=== PATIENT | female | born 2000 | race Caucasian/White ===

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

== ENCOUNTER 2020-09-03 08:06 | Inpatient (IN) ==
[2020-09-03] MEDS ORDERED: OXYTOCIN 30 UNITS/500 ML BAG IV PRN ×2 (09:01→20:57)
[2020-09-03] MEDS: miSOPROStoL 50 MCG TAB PO SCH ×3 (09:28→18:24)
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
[2020-09-03 09:32] LABS: Hematocrit (blood only) 36.4 % (37-47); Hemoglobin 12.3 g/dL (12.0-16.0); Mean Corpuscular Hemoglobin 29.2 pg (25-34); Mean Corpuscular Hgb Conc 33.8 g/dL (32-36); Mean Corpuscular Volume 86.5 fL (80-100); Mean Platelet Volume 9.1 fL (7.4-10.4); Platelet Count 312 K/uL (130-400); RDW Coefficient of Variation 15.1 % (11.5-14.5); RDW Standard Deviation 47.4 fL (36.4-46.3); Red Blood Count 4.21 M/uL (4.2-5.4)
[2020-09-03 09:55] LABS: Amphetamines+Metham, Urine Neg (Neg); Barbiturates, Urine Neg (Neg); Benzodiazepine, Urine Neg (Neg); Cocaine, Urine Neg (Neg); MDMA (Ecstacy), Urine Neg (Neg); Methadone, Urine Neg (Neg); Opiate, Urine Neg (Neg); Phencyclidine, Urine Neg (Neg)
[2020-09-03 09:59] LABS: Alanine Aminotransferase 13 U/L (12-78); Albumin Level 2.6 gm/dl (3.4-5.0); Aspartate Aminotransferase 11 U/L (15-37); BUN Creatinine Ratio 14.3 (10-20); Blood Urea Nitrogen 8 mg/dl (7-18); Calcium 8.4 mg/dl (8.5-10.1); Carbon Dioxide 21 mmol/L (21-32); Chloride 111 mmol/L (98-107); Creatinine Clr Calc Pharmacy 228.5 ml/min; Est GFR (African American) > 150.0; Est GFR (Non-African American) 135.8; Glucose 84 mg/dl (70-99); Potassium 3.8 mmol/L (3.5-5.1); Sodium 137 mmol/L (136-145)
[2020-09-03 10:01] LABS: Albumin Globulin Ratio 0.7 (0.9-2); Alkaline Phosphatase 153 U/L (45-117); Bilirubin,Total 0.2 mg/dl (0.2-1); Globulin 3.8 gm/dl (2.5-4.0); Total Protein 6.4 gm/dl (6.4-8.2)
--- NOTE | 2020-09-03 17:45 | Obstetrical Progress Note ---
Date of Service September 03, 2020 Assessment & Plan Admission and Anticipated Discharge Date Admission Date: September 03, 2020 Subjective Patient is reevaluated. She has been feeling pain every 2 minutes lasting about 10 to 20 seconds since she broke her water at around 3:30 PM this afternoon. Pain is 5 out of 10 and she is pain-free in between. She had a big gush and it has been clear. She states pain is not bad and does not want any pain medication. Vaginal exam, grossly leaking clear fluid. Cervix is very high posterior 1 cm and head is ballotable. heart rate category 1, toco does not register any contractions. Plan to adjust to toco to monitor contractions for further plan. Continue to monitor closely. Results & Data ([facility]) Vital Signs (Past 12 Hours) Vital Signs Temp Pulse Resp BP 09/03/20 14:22 94 H 132/87 09/03/20 14:08 90 131/81 09/03/20 13:53 94 H 141/77 H 09/03/20 13:38 93 H 140/85 09/03/20 13:23 93 H 133/76 09/03/20 13:04 36.8 C 18 09/03/20 10:27 73 138/79 09/03/20 10:12 80 130/80 09/03/20 09:57 74 131/82 09/03/20 09:43 86 129/83 09/03/20 09:30 18 09/03/20 09:28 86 124/86 09/03/20 09:14 36.6 C 92 H 18 138/84 09/03/20 08:40 36.6 C 92 H 18 138/84 09/03/20 08:17 92 H 138/84 09/03/20 08:15 36.6 C 92 H 18 138/84
[2020-09-03] MEDS: LACTATED RINGER'S 1,000 ML IV PRN (22:23)
[2020-09-03] MEDS ORDERED: diphenhydrAMINE 50 MG/ML VIAL IV PRN (22:47)
[2020-09-03] MEDS ORDERED: NALOXONE HCL 0.4 MG/1 ML VIAL/CARP IV PRN (22:47)
[2020-09-03] MEDS ORDERED: NALOXONE HCL 1 MG in SODIUM CHLORIDE 0.9% 1000ML 1,000 ML IV PRN (22:47)
[2020-09-03] MEDS ORDERED: ePHEDrine sulfate 50 MG/ML AMP IV PRN (22:47)
--- NOTE | 2020-09-03 22:47 | Anesthesiology Consultation ---
Date of Service September 03, 2020 Assessment & Plan Chart Review Chart Review: Acceptable Risk for Surgery Consults Requested none History Height/Weight Height: 5 ft 6 in Weight: 128.82 kg Allergies Allergy/AdvReac Type Severity Reaction Status Date / Time cat dander Allergy Severe sneeze, Verified 04/07/20 21:47 itch dog dander Allergy Unknown UNKNOWN Verified 04/07/20 21:47 Guinea Pig Epithelium Allergy Unknown SWELLING/THROAT Uncoded 04/07/20 21:47 SWELLING Medications Home Medications Medication Instructions Recorded Confirmed Last Taken PNV,calcium 08-cnbw-zippa acid 1 tab PO DAILY 04/07/20 09/03/20 04/05/20 [ Vitamin Plus Low Iron] Active Medications Generic Name Dose Route Start Last Admin Trade Name Freq PRN Reason Stop Dose Admin Lactated Ringer's 1,000 mls @ 150 mls/hr 09/03/20 09:01 09/03/20 22:23 Lr IV 09/05/20 09:00 150 mls/hr .Q6H40M PRN Administration L&D Protocol Protocol Oxytocin 30 units in 500 mls @ 1 mls/hr 09/03/20 20:57 09/03/20 22:28 Pitocin IV 09/05/20 20:56 0.06 units/hr .Q24H PRN 1 mls/hr Labor Induction/Augmentation Administration Protocol 0.06 UNITS/HR Misoprostol 50 mcg 09/03/20 09:05 09/03/20 18:24 Misoprostol 50 Mcg Tab PO 10/03/20 09:04 50 mcg Q4 DAVE Administration Past Medical History Medical History Chlamydia Depression with suicidal ideation Miscarriage Obesity Past Family History Family History Other No pertinent family history Social History Smoking Status: Former smoker tobacco type: cigarettes Hx Alcohol Use: No Hx Substance Use: Yes substance use type: marijuana Last Used Substance: Days (ago) Last Used Substance Other:: 1 Physical Exam Vital Signs Last Vital Signs Temp 36.7 C 09/03/20 19:40 Pulse 82 09/03/20 21:06 Resp 18 09/03/20 21:06 BP 120/71 09/03/20 21:06 Pulse Ox 99 09/03/20 19:47 Testing Laboratory Results 09/03/20 09:16 09/03/20 09:16 Blood Type O Negative 09/03/20 09:16 Antibody Screen NEGATIVE 09/03/20 09:16
[2020-09-03] MEDS: fentaNYL 2MCG/ML ROPIVACAINE 1.25MG/ML 100 ML BAG EPI PRN (23:08)
--- NOTE | 2020-09-03 23:39 | Obstetrical Progress Note ---
Date of Service September 03, 2020 Assessment & Plan Admission and Anticipated Discharge Date Admission Date: September 03, 2020 Subjective Patient is reevaluated She got very painful and asked for epidural Her cervix was 2/ 70%/ -2 by her nurse Now she feels better FHR 130's categ I Pitocin at 1 miu/min Continue to monitor closely Results & Data ([facility]) Vital Signs (Past 12 Hours) Vital Signs Temp Pulse Resp BP Pulse Ox 09/03/20 23:32 84 98 09/03/20 23:31 86 150/90 H 09/03/20 23:28 82 158/98 H 09/03/20 23:27 78 98 09/03/20 23:25 85 140/90 09/03/20 23:22 80 99 09/03/20 23:19 84 147/95 H 09/03/20 23:17 85 99 09/03/20 23:16 96 H 139/75 09/03/20 23:13 86 137/74 09/03/20 23:12 74 99 09/03/20 23:09 88 151/78 H 09/03/20 23:07 84 154/65 H 99 09/03/20 23:04 88 137/80 09/03/20 23:02 89 99 09/03/20 23:01 86 135/81 09/03/20 22:58 90 133/82 09/03/20 22:57 81 100 09/03/20 22:55 90 119/69 09/03/20 22:52 204 H 75 L 09/03/20 22:51 198 H 76 L 09/03/20 21:06 82 18 120/71 09/03/20 20:34 77 165/86 H 09/03/20 19:47 77 99 09/03/20 19:45 81 138/89 09/03/20 19:40 36.7 C 18 09/03/20 18:44 86 134/86 09/03/20 18:29 80 127/78 09/03/20 18:28 36.6 C 18 09/03/20 14:22 94 H 132/87 09/03/20 14:08 90 131/81 09/03/20 13:53 94 H 141/77 H 09/03/20 13:38 93 H 140/85 09/03/20 13:23 93 H 133/76 09/03/20 13:04 36.8 C 18
[2020-09-04] MEDS ORDERED: LIDOCAINE HCL 2% MPF (LOCAL) 5 ML VIAL INFIL ONE (00:01)
[2020-09-04] MEDS ORDERED: fentaNYL citrate 100 MCG/2 ML VIAL ONE ×6 (00:01→18:59)
[2020-09-04] MEDS: LACTATED RINGER'S 1,000 ML IV PRN ×3 (01:37→15:26)
--- NOTE | 2020-09-04 02:03 | Communication Note ---
Date of Service: September 04, 2020 at 0159,pt's epidural was bolused w/12 ml 0.17% bupivacaine + 100 mcgs fentanyl; negative incremental aspirations and injections; no csf or blood;vital signs are stable.
--- NOTE | 2020-09-04 02:13 | Anesthesiology Progress Note ---
Date of Service September 04, 2020 Assessment & Plan Admission and Anticipated Discharge Date Admission Date: September 03, 2020 Physical Exam Vital Signs: Last Vital Signs Temp 36.8 C 09/03/20 23:36 Pulse 110 H 09/04/20 02:02 Resp 18 09/04/20 01:32 BP 140/78 09/04/20 01:35 Pulse Ox 96 09/04/20 02:02 Results & Data ([facility]) Medications Administered Lactated Ringer's (Lr) 1,000 mls @ 150 mls/hr IV .Q6H40M PRN; Protocol PRN Reason: L&D Protocol Stop: 09/05/20 09:00 Last Admin: 09/04/20 01:37 Dose: 150 mls/hr Documented by: [id number] Infusion: 09/04/20 01:37 Dose: 150 mls/hr Documented by: [id number] Admin: 09/03/20 22:23 Dose: 150 mls/hr Documented by: [id number] Oxytocin (Pitocin) 30 units in 500 mls @ 2 mls/hr IV .Q24H PRN; Protocol PRN Reason: Labor Induction/Augmentation Stop: 09/05/20 20:56 Last Titration: 09/04/20 00:01 Dose: 0.12 units/hr, 2 mls/hr Documented by: [id number] Admin: 09/03/20 22:28 Dose: 0.06 units/hr, 1 mls/hr Documented by: [id number] Cosigned by: [id number] Misoprostol (Misoprostol 50 Mcg Tab) 50 mcg PO Q4 DAVE Stop: 10/03/20 09:04 Last Admin: 09/03/20 18:24 Dose: 50 mcg Documented by: [id number] Admin: 09/03/20 13:30 Dose: 50 mcg Documented by: [id number] Admin: 09/03/20 09:28 Dose: 50 mcg Documented by: [id number] Ropivacaine (Fentanyl 2mcg/Ml Ropivacaine 1.25mg/Ml 100 Ml Bag) 100 ml EPI PRN PRN; Protocol PRN Reason: Pain R/T Labor Stop: 09/04/20 22:46 Last Admin: 09/03/20 23:08 Dose: 100 ml Documented by: [id number] Cosigned by: [id number]
--- NOTE | 2020-09-04 02:22 | Obstetrical Progress Note ---
Date of Service September 04, 2020 Assessment & Plan Admission and Anticipated Discharge Date Admission Date: September 03, 2020 Subjective Patient had to have 2nd epidural for pain Awaiting for it to work Her BF had to leave, she is crying but talking and asking good questions Her friend is going to come over for support FHR categ I Vevay: ctxs q 2-4min, pitocin was stopped and now restarted Continue to monitor closely Results & Data ([facility]) Vital Signs (Past 12 Hours) Vital Signs Temp Pulse Resp BP Pulse Ox 09/04/20 02:17 104 H 94 09/04/20 02:12 121 H 97 09/04/20 02:07 133 H 137/89 97 09/04/20 02:02 110 H 96 09/04/20 01:57 111 H 97 09/04/20 01:52 120 H 97 09/04/20 01:47 115 H 98 09/04/20 01:42 93 H 97 09/04/20 01:37 98 H 96 09/04/20 01:35 88 140/78 09/04/20 01:32 95 H 18 97 09/04/20 01:31 105 H 145/76 H 09/04/20 01:29 98 H 143/74 H 09/04/20 01:27 88 97 09/04/20 01:26 102 H 111/66 09/04/20 01:23 100 H 129/73 09/04/20 01:22 91 H 96 09/04/20 01:17 89 97 09/04/20 01:16 94 H 140/75 09/04/20 01:13 93 H 147/72 H 09/04/20 01:12 97 H 98 09/04/20 01:10 106 H 150/85 H 09/04/20 01:07 100 H 150/82 H 97 09/04/20 01:04 111 H 155/74 H 09/04/20 01:02 98 H 155/70 H 98 09/04/20 00:57 96 H 97 09/04/20 00:55 85 124/80 09/04/20 00:52 93 H 120/84 96 09/04/20 00:51 84 143/77 H 09/04/20 00:49 90 136/84 09/04/20 00:47 96 H 97 09/04/20 00:46 90 135/79 94 09/04/20 00:43 85 137/80 09/04/20 00:42 89 96 09/04/20 00:41 85 135/71 09/04/20 00:37 88 152/79 H 98 09/04/20 00:34 96 H 138/73 09/04/20 00:32 89 98 09/04/20 00:31 101 H 135/66 09/04/20 00:28 93 H 132/63 09/04/20 00:27 81 98 09/04/20 00:25 90 143/66 H 09/04/20 00:23 96 H 133/63 09/04/20 00:22 91 H 98 09/04/20 00:20 90 156/74 H 09/04/20 00:17 81 98 09/04/20 00:14 82 116/67 09/04/20 00:12 93 H 97 09/04/20 00:11 81 133/81 09/04/20 00:07 81 108/62 98 09/04/20 00:04 77 118/73 09/04/20 00:02 77 98 09/04/20 00:00 81 116/66 09/03/20 23:57 78 97 09/03/20 23:56 18 98 09/03/20 23:55 76 118/57 L 09/03/20 23:52 75 95 09/03/20 23:50 80 119/58 L 09/03/20 23:47 81 98 09/03/20 23:45 82 114/70 09/03/20 23:42 82 114/72 98 09/03/20 23:37 88 139/92 98 09/03/20 23:36 36.8 C 18 09/03/20 23:32 84 98 09/03/20 23:31 86 150/90 H 09/03/20 23:28 82 158/98 H 09/03/20 23:27 78 98 09/03/20 23:25 85 140/90 09/03/20 23:22 80 99 09/03/20 23:19 84 147/95 H 09/03/20 23:17 85 99 09/03/20 23:16 96 H 139/75 09/03/20 23:13 86 137/74 09/03/20 23:12 74 99 09/03/20 23:09 88 151/78 H 09/03/20 23:07 84 154/65 H 99 09/03/20 23:04 88 137/80 09/03/20 23:02 89 99 09/03/20 23:01 86 135/81 09/03/20 22:58 90 133/82 09/03/20 22:57 81 100 09/03/20 22:55 90 119/69 09/03/20 22:52 204 H 75 L 09/03/20 22:51 198 H 76 L 09/03/20 21:06 82 18 120/71 09/03/20 20:34 77 165/86 H 09/03/20 19:47 77 99 09/03/20 19:45 81 138/89 09/03/20 19:40 36.7 C 18 09/03/20 18:44 86 134/86 09/03/20 18:29 80 127/78 09/03/20 18:28 36.6 C 18 09/03/20 14:22 94 H 132/87
[2020-09-04] MEDS ORDERED: NALOXONE HCL 1 MG in SODIUM CHLORIDE 0.9% 1000ML 1,000 ML IV PRN (03:00)
[2020-09-04] MEDS ORDERED: MoRPHine SULFATE PF 1 MG/ML 10 ML AMP/VIAL IT ONE (03:00)
[2020-09-04] MEDS ORDERED: PROMETHAZINE HCL 25 MG in SODIUM CHLORIDE 0.9% 50 ML IV PRN (03:00)
--- NOTE | 2020-09-04 03:17 | Communication Note ---
Date of Service: September 04, 2020 At 0230, insitu epidural cath removed w/ tip intact
--- NOTE | 2020-09-04 03:20 | Communication Note ---
Date of Service: September 04, 2020 I have explained to pt and RN that there is a strong likelihood of pt developing a PDPH after two breaches of the dural covering, and that she may need an epidural blood patch.
[2020-09-04] MEDS: miSOPROStoL 50 MCG TAB PO SCH ×2 (07:20→09:58)
[2020-09-04] MEDS ORDERED: BUPIVACAINE 0.25% 30 ML VIAL ONE ×3 (09:18→18:58)
[2020-09-04] MEDS ORDERED: SODIUM CHLORIDE 0.9% INJ 10 ML VIAL ONE ×3 (09:18→18:58)
[2020-09-04] MEDS ORDERED: fentaNYL 2MCG/ML ROPIVACAINE 1.25MG/ML 100 ML BAG EPI PRN (09:32)
[2020-09-04] MEDS: fentaNYL 2MCG/ML ROPIVACAINE 1.25MG/ML 100 ML BAG EPI PRN ×3 (09:50→16:17)
--- NOTE | 2020-09-04 10:47 | Progress Note ---
Date of Service September 04, 2020 Assessment & Plan Admission and Anticipated Discharge Date Admission Date: September 03, 2020 Subjective Pt doing well Poor quality tracing because of body habitus Ctx; irregular VE; 5/80/-2 scalp and IUPC placed Pit; 4mu Continue Pitocin augmentation Results & Data ([facility]) Vital Signs (Past 12 Hours) Vital Signs Temp Pulse Resp BP Pulse Ox 09/04/20 10:40 94 H 96 09/04/20 10:35 99 H 96 09/04/20 10:33 101 H 134/75 09/04/20 10:30 94 H 95 09/04/20 10:25 100 H 98 09/04/20 10:20 92 H 92 09/04/20 10:18 86 132/72 91 09/04/20 10:15 87 93 09/04/20 10:10 99 H 91 09/04/20 10:05 100 H 97 09/04/20 10:03 98 H 143/79 H 09/04/20 10:00 92 H 94 09/04/20 09:55 95 H 97 09/04/20 09:50 99 H 97 09/04/20 09:48 93 H 146/70 H 09/04/20 09:45 98 H 98 09/04/20 09:40 94 H 96 09/04/20 09:35 85 94 09/04/20 09:33 86 144/68 H 09/04/20 09:30 85 95 09/04/20 09:25 98 H 98 09/04/20 09:24 94 H 126/70 09/04/20 09:23 92 H 133/72 09/04/20 09:20 96 H 97 09/04/20 09:15 90 96 09/04/20 09:10 102 H 97 09/04/20 09:05 96 H 97 09/04/20 09:03 100 H 127/68 09/04/20 09:00 98 H 97 09/04/20 08:55 104 H 98 09/04/20 08:50 97 H 98 09/04/20 08:48 125/70 09/04/20 08:45 88 97 09/04/20 08:40 89 98 09/04/20 08:35 100 H 98 09/04/20 08:33 100 H 120/65 09/04/20 08:30 95 H 97 09/04/20 08:25 99 H 99 09/04/20 08:20 88 94 09/04/20 08:18 100 H 120/67 09/04/20 08:16 99 H 87 L 09/04/20 08:15 86 95 09/04/20 08:10 99 H 96 09/04/20 08:05 81 94 09/04/20 08:03 83 114/65 09/04/20 08:00 88 95 09/04/20 07:55 90 93 09/04/20 07:50 86 93 09/04/20 07:49 96 H 108/56 L 09/04/20 07:45 89 94 09/04/20 07:40 89 93 09/04/20 07:35 92 H 93 09/04/20 07:33 90 93/54 L 09/04/20 07:30 88 94 09/04/20 07:25 90 94 09/04/20 07:20 85 97 09/04/20 07:18 80 86/48 L 09/04/20 07:17 29 L 99/46 L 09/04/20 07:13 37.1 C 85 20 90/51 L 09/04/20 07:10 93 H 86/46 L 09/04/20 07:07 96 H 103/55 L 09/04/20 07:04 93 H 99/52 L 09/04/20 07:01 101 H 98/51 L 09/04/20 06:58 99/54 L 09/04/20 06:55 81 97/50 L 09/04/20 06:52 93 H 94/50 L 09/04/20 06:49 108 H 102/50 L 09/04/20 06:46 93 H 107/52 L 09/04/20 06:44 92 H 102/55 L 09/04/20 06:34 100 H 119/62 09/04/20 06:31 81 120/62 09/04/20 06:30 18 09/04/20 06:28 88 112/57 L 09/04/20 06:25 92 H 117/66 09/04/20 06:22 85 123/76 99 09/04/20 06:19 90 140/80 09/04/20 06:17 91 H 97 09/04/20 06:16 88 131/80 09/04/20 06:12 93 H 97 09/04/20 06:07 97 H 95 09/04/20 06:02 88 97 09/04/20 05:57 110 H 96 09/04/20 05:56 103 H 90 09/04/20 05:52 95 H 94 09/04/20 05:47 87 97 09/04/20 05:42 78 96 09/04/20 05:37 93 H 97 09/04/20 05:32 100 H 97 09/04/20 05:31 92 H 131/88 09/04/20 05:27 95 H 99 09/04/20 05:22 84 96 09/04/20 05:17 64 126/82 93 09/04/20 05:13 71 91 09/04/20 05:12 68 94 09/04/20 05:07 80 94 09/04/20 05:06 72 94 09/04/20 05:02 85 94 09/04/20 05:01 75 126/74 09/04/20 04:59 87 94 09/04/20 04:57 86 97 09/04/20 04:52 83 97 09/04/20 04:47 82 97 09/04/20 04:46 81 130/73 09/04/20 04:43 86 94 09/04/20 04:42 96 H 97 09/04/20 04:37 79 96 09/04/20 04:32 89 96 09/04/20 04:30 86 94 09/04/20 04:27 84 97 09/04/20 04:22 86 97 09/04/20 04:20 82 126/60 94 09/04/20 04:17 84 98 09/04/20 04:12 98 H 97 09/04/20 04:11 90 18 127/88 09/04/20 04:10 18 09/04/20 04:09 91 H 93 09/04/20 04:07 88 97 09/04/20 04:02 95 H 150/87 H 96 09/04/20 04:00 97 H 89 L 09/04/20 03:57 96 H 99 09/04/20 03:52 103 H 100 09/04/20 03:47 81 99 09/04/20 03:46 86 93 09/04/20 03:44 85 126/73 09/04/20 03:43 36.7 C 18 09/04/20 03:42 96 H 134/74 97 09/04/20 03:37 93 H 96 09/04/20 03:32 95 H 98 09/04/20 03:31 100 H 114/62 09/04/20 03:27 91 H 93 09/04/20 03:22 97 H 98 09/04/20 03:20 86 119/66 09/04/20 03:17 83 115/60 98 09/04/20 03:14 88 119/63 09/04/20 03:12 87 97 09/04/20 03:11 76 117/67 09/04/20 03:08 83 121/60 09/04/20 03:07 90 97 09/04/20 03:06 90 119/67 09/04/20 03:02 91 H 126/64 97 09/04/20 02:59 90 122/65 09/04/20 02:57 101 H 97 09/04/20 02:56 97 H 130/73 09/04/20 02:55 106 H 128/82 09/04/20 02:53 123 H 120/70 09/04/20 02:52 98 H 96 09/04/20 02:51 94 H 93 09/04/20 02:50 96 H 119/60 09/04/20 02:47 97 H 127/69 95 09/04/20 02:44 84 125/69 09/04/20 02:43 91 H 94 09/04/20 02:42 95 H 95 09/04/20 02:41 93 H 124/70 09/04/20 02:37 106 H 96 09/04/20 02:32 116 H 94 09/04/20 02:30 93 H 94 09/04/20 02:27 101 H 124/81 96 09/04/20 02:22 94 H 97 09/04/20 02:17 104 H 94 09/04/20 02:12 121 H 97 09/04/20 02:07 133 H 137/89 97 09/04/20 02:02 110 H 96 09/04/20 01:57 111 H 97 09/04/20 01:52 120 H 97 09/04/20 01:47 115 H 98 09/04/20 01:42 93 H 97 09/04/20 01:37 98 H 96 09/04/20 01:35 88 140/78 09/04/20 01:32 95 H 18 97 09/04/20 01:31 105 H 145/76 H 09/04/20 01:29 98 H 143/74 H 09/04/20 01:27 88 97 09/04/20 01:26 102 H 111/66 09/04/20 01:23 100 H 129/73 09/04/20 01:22 91 H 96 09/04/20 01:17 89 97 09/04/20 01:16 94 H 140/75 09/04/20 01:13 93 H 147/72 H 09/04/20 01:12 97 H 98 09/04/20 01:10 106 H 150/85 H 09/04/20 01:07 100 H 150/82 H 97 09/04/20 01:04 111 H 155/74 H 09/04/20 01:02 98 H 155/70 H 98 09/04/20 00:57 96 H 97 09/04/20 00:55 85 124/80 09/04/20 00:52 93 H 120/84 96 09/04/20 00:51 84 143/77 H 09/04/20 00:49 90 136/84 09/04/20 00:47 96 H 97 09/04/20 00:46 90 135/79 94 09/04/20 00:43 85 137/80 09/04/20 00:42 89 96 09/04/20 00:41 85 135/71 09/04/20 00:37 88 152/79 H 98 09/04/20 00:34 96 H 138/73 09/04/20 00:32 89 98 09/04/20 00:31 101 H 135/66 09/04/20 00:28 93 H 132/63 09/04/20 00:27 81 98 09/04/20 00:25 90 143/66 H 09/04/20 00:23 96 H 133/63 09/04/20 00:22 91 H 98 09/04/20 00:20 90 156/74 H 09/04/20 00:17 81 98 09/04/20 00:14 82 116/67 09/04/20 00:12 93 H 97 09/04/20 00:11 81 133/81 09/04/20 00:07 81 108/62 98 09/04/20 00:04 77 118/73 09/04/20 00:02 77 98 09/04/20 00:00 81 116/66 09/03/20 23:57 78 97 09/03/20 23:56 18 98 09/03/20 23:55 76 118/57 L 09/03/20 23:52 75 95 09/03/20 23:50 80 119/58 L 09/03/20 23:47 81 98 09/03/20 23:45 82 114/70 09/03/20 23:42 82 114/72 98 09/03/20 23:37 88 139/92 98 09/03/20 23:36 36.8 C 18 09/03/20 23:32 84 98 09/03/20 23:31 86 150/90 H 09/03/20 23:28 82 158/98 H 09/03/20 23:27 78 98 09/03/20 23:25 85 140/90 09/03/20 23:22 80 99 09/03/20 23:19 84 147/95 H 09/03/20 23:17 85 99 09/03/20 23:16 96 H 139/75 09/03/20 23:13 86 137/74 09/03/20 23:12 74 99 09/03/20 23:09 88 151/78 H 09/03/20 23:07 84 154/65 H 99 09/03/20 23:04 88 137/80 09/03/20 23:02 89 99 09/03/20 23:01 86 135/81 09/03/20 22:58 90 133/82 09/03/20 22:57 81 100 09/03/20 22:55 90 119/69 09/03/20 22:52 204 H 75 L 09/03/20 22:51 198 H 76 L
[2020-09-04] MEDS ORDERED: METHYLERGONOVINE MALEATE 0.2 MG/ML AMP ONE (17:50)
[2020-09-04] MEDS ORDERED: miSOPROStoL 200 MCG TAB ONE (17:55)
[2020-09-04] MEDS ORDERED: bisacodyL 10 MG SUPP PR PRN (18:00)
[2020-09-04] MEDS ORDERED: SUPERCREAM 0.870% 15 GM JAR EXT PRN (18:00)
[2020-09-04] MEDS ORDERED: DIPHTHERIA/TETANUS/PERTUSSIS 0.5 ML SYR/VIAL IM ONE (18:00)
[2020-09-04] MEDS ORDERED: OXYTOCIN 30 UNITS/500 ML BAG IV PRN (18:00)
[2020-09-04] MEDS ORDERED: HYDROCORTISONE ACETATE 25 MG SUPP PR PRN (18:00)
[2020-09-04] MEDS ORDERED: BENZOCAINE 20% AER SPR 82.5 GM CAN EXT PRN (18:00)
[2020-09-04] MEDS ORDERED: miSOPROStoL 200 MCG TAB PR ONE (18:00)
[2020-09-04] MEDS ORDERED: METHYLERGONOVINE MALEATE 0.2 MG/ML AMP IM ONE (18:00)
--- NOTE | 2020-09-04 18:04 | Anesthesia Procedure Note ---
Date of Service September 04, 2020 Anesthesia Post Epidural Note Vital Signs Vital Signs: Temp Pulse Resp BP Pulse Ox 36.9 C 114 H 20 123/58 L 75 L 09/04/20 15:04 09/04/20 17:52 09/04/20 15:04 09/04/20 17:52 09/04/20 17:45 SpO2 in the 90s (not 75) Pain Intensity Back: Pain Intensity: 1 Lower Abdomen: Pain Intensity: 1 Notes Mental Status: alert / awake / arousable and participated in evaluation Nausea / Vomiting: adequately controlled Pain: adequately controlled Airway Patency, RR, SpO2: stable & adequate BP & HR: stable & adequate Hydration State: stable & adequate Neuraxial Anesthesia: was administered and sensory block is resolving Anesthetic Complications: no major complications apparent and Pt Satisfied with anesthetic care Epidural: Removed without complications and With tip intact
[2020-09-04] MEDS ORDERED: ePHEDrine sulfate 50 MG/ML AMP ONE (18:58)
[2020-09-04] MEDS ORDERED: fentaNYL 2MCG/ML ROPIVACAINE 1.25MG/ML 100 ML BAG EPI ONE (19:00)
[2020-09-04] MEDS: IBUPROFEN 600 MG TAB PO PRN (19:13)
[2020-09-04] MEDS: ACETAMINOPHEN 325 MG TAB PO PRN (21:42)
[2020-09-04] MEDS: DOCUSATE SODIUM 100 MG CAP PO SCH (22:26)
[2020-09-05 03:03] LABS: Marijuana Quant, GCMS Urine 47 ng/mL (<5)
[2020-09-05] MEDS: IBUPROFEN 600 MG TAB PO PRN ×5 (03:23→21:44)
[2020-09-05] MEDS: ACETAMINOPHEN 325 MG TAB PO PRN ×2 (05:47→20:22)
[2020-09-05 06:46] LABS: Hematocrit (blood only) 32.8 % (37-47); Hemoglobin 11.2 g/dL (12.0-16.0); Mean Corpuscular Hemoglobin 29.6 pg (25-34); Mean Corpuscular Hgb Conc 34.1 g/dL (32-36); Mean Corpuscular Volume 86.5 fL (80-100); Platelet Count 296 K/uL (130-400); RDW Coefficient of Variation 15.2 % (11.5-14.5); RDW Standard Deviation 48.1 fL (36.4-46.3); Red Blood Count 3.79 M/uL (4.2-5.4); White Blood Count 16.72 K/uL (4.8-10.8)
--- NOTE | 2020-09-05 08:05 | Delivery Summary ---
DATE OF OPERATION: 09/04/2020 The patient delivered a live infant in left occiput anterior presentation. There was a loose nuchal cord, which was easily reduced. Infant was delivered, placed on mother's abdomen. Delayed cord clamp was performed after 1 minute. Cord blood was obtained and placenta was spontaneously delivered. Inspection of the placenta shows a grossly normal looking placenta with 3-vessel cord. Inspection of the perineum shows a first-degree laceration, which was repaired with Vicryl stitch. Rectal exam post repair showed good sphincter tone. There are no sutures palpated in the rectum. Estimated blood loss is 450 mL . Mother and baby are doing well. All instruments were removed from the vagina and accounted for x2. The patient and baby are in recovery. I attest to the content of the Intraoperative Record and any orders documented therein. Any exception s are noted below.
[2020-09-05] MEDS: PRENATAL VITAMIN 1 TAB PO SCH (08:17)
[2020-09-05] MEDS: DOCUSATE SODIUM 100 MG CAP PO SCH ×2 (08:17→20:21)
--- NOTE | 2020-09-05 10:20 | Obstetrical Progress Note ---
Date of Service September 05, 2020 Assessment & Plan Admission and Anticipated Discharge Date Admission Date: September 03, 2020 Subjective PPD#1 doing well has post epidural wet tap and persistent headache no nausea or vomiting out of bed tolerating diet Physical Exam Constitutional: + obese and comfortable abdomen is soft and non-tender no edema neg Corinne's plan for blood patch if headache not relieved may consider outpatient management under fluoro per Dr. Luo Results & Data ([facility]) Vital Signs (Past 12 Hours) Vital Signs Temp Pulse Pulse Pulse Resp BP BP 09/05/20 08:00 36.9 C 85 18 115/74 09/05/20 03:15 36.8 C 93 H 18 129/79 09/04/20 23:00 37.1 C 68 18 134/92 Pulse Ox 09/05/20 08:00 98 09/05/20 03:15 99 09/04/20 23:00 98 Laboratory Results Laboratory Results - last 72 hr 09/03/20 09/03/20 09/03/20 08:20 08:20 09:16 WBC RBC Hgb Hct MCV MCH MCHC RDW Std Deviation RDW Coeff of Bailey Plt Count MPV Sodium Potassium Chloride Carbon Dioxide Anion Gap BUN Creatinine Est Cr Clr Drug Dosing Est GFR ( Amer) Est GFR (Non-Af Amer) BUN/Creatinine Ratio Glucose Calcium Total Bilirubin AST ALT Alkaline Phosphatase Total Protein Albumin Globulin Albumin/Globulin Ratio Urine Opiates Screen Neg Ur Methadone, Qual Neg Urine Barbiturates Neg Ur Phencyclidine (PCP) Neg U Amphetamin/Meth Scrn Neg MDMA (Ecstasy) Screen Neg U Benzodiazepines Scrn Neg Ur Cocaine Metabolite Neg U Marijuana (THC) Screen Pos H U Marijuana THC Carboxy 47 H Drug Screen Comment SEE NOTE Hepatitis C Antibody Blood Type O Negative Antibody Screen NEGATIVE 09/03/20 09/03/20 09/03/20 09:16 09:16 09:16 WBC 10.60 RBC 4.21 Hgb 12.3 Hct 36.4 L MCV 86.5 MCH 29.2 MCHC 33.8 RDW Std Deviation 47.4 H RDW Coeff of Bailey 15.1 H Plt Count 312 MPV 9.1 Sodium 137 Potassium 3.8 Chloride 111 H Carbon Dioxide 21 Anion Gap 5.0 BUN 8 Creatinine 0.54 L Est Cr Clr Drug Dosing 228.5 Est GFR ( Amer) > 150.0 Est GFR (Non-Af Amer) 135.8 BUN/Creatinine Ratio 14.3 Glucose 84 Calcium 8.4 L Total Bilirubin 0.2 AST 11 L ALT 13 Alkaline Phosphatase 153 H Total Protein 6.4 Albumin 2.6 L Globulin 3.8 Albumin/Globulin Ratio 0.7 L Urine Opiates Screen Ur Methadone, Qual Urine Barbiturates Ur Phencyclidine (PCP) U Amphetamin/Meth Scrn MDMA (Ecstasy) Screen U Benzodiazepines Scrn Ur Cocaine Metabolite U Marijuana (THC) Screen U Marijuana THC Carboxy Drug Screen Comment Hepatitis C Antibody Neg Blood Type Antibody Screen 09/05/20 06:33 WBC 16.72 H RBC 3.79 L Hgb 11.2 L Hct 32.8 L MCV 86.5 MCH 29.6 MCHC 34.1 RDW Std Deviation 48.1 H RDW Coeff of Bailey 15.2 H Plt Count 296 MPV 9.0 Sodium Potassium Chloride Carbon Dioxide Anion Gap BUN Creatinine Est Cr Clr Drug Dosing Est GFR ( Amer) Est GFR (Non-Af Amer) BUN/Creatinine Ratio Glucose Calcium Total Bilirubin AST ALT Alkaline Phosphatase Total Protein Albumin Globulin Albumin/Globulin Ratio Urine Opiates Screen Ur Methadone, Qual Urine Barbiturates Ur Phencyclidine (PCP) U Amphetamin/Meth Scrn MDMA (Ecstasy) Screen U Benzodiazepines Scrn Ur Cocaine Metabolite U Marijuana (THC) Screen U Marijuana THC Carboxy Drug Screen Comment Hepatitis C Antibody Blood Type Antibody Screen
[2020-09-05] MEDS ORDERED: MAGNESIUM SULFATE 4GM / WTR 100 ML BAG IV ONE (10:39)
--- NOTE | 2020-09-05 10:45 | Communication Note ---
Date of Service: September 05, 2020 Patient had very difficult epidural placement by multiple operators for labor, which included 2 obvious dural punctures. Since several hours after delivery, she reports a 9/10 headache which has not improved with conservative treatment. Pain is not improved by position. She says she feels "foggy" due to pain. The pain is primarily frontal in nature. She did experience migraines during her but this headache is of different quality. Exam was unremarkable for any focal neurologic deficits or any significant physical findings. Vital signs were normal. She was sitting in bed breast feeding her during our conversation. I spoke with the patient that these symptoms are not classic for PDPH, but given her traumatic epidural placement and multiple wet taps, it is still quite possible that this is the cause of her symptoms. Given the difficulties encountered by two of my partners, I would be concerned that another blind ne uroaxial technique may cause another wet tap and worsening her headache. Thus, we will have her setup for outpatient follow up with chronic pain management upon discharge where she can be evaluated for a possible EBP under flouroscopy. The patient states that she does have help at home and she is amenable to this plan. In the meantime, we will continue oral NSAIDs, oral caffeine, and add 2g of magnesium sulfate IV.
[2020-09-05] MEDS: MAGNESIUM SULFATE / D5W 1 GM/100 ML BAG IV SCH ×2 (12:19→13:34)
[2020-09-05] MEDS ORDERED: bisacodyL 5 MG TABEC PO SCH (20:00)
[2020-09-06] MEDS: IBUPROFEN 600 MG TAB PO PRN ×2 (03:12→07:33)
[2020-09-06 06:57] LABS: Hematocrit (blood only) 32.1 % (37-47); Hemoglobin 10.6 g/dL (12.0-16.0)
[2020-09-06] MEDS: PRENATAL VITAMIN 1 TAB PO SCH (07:34)
[2020-09-06] MEDS: DOCUSATE SODIUM 100 MG CAP PO SCH (07:34)
[2020-09-06 08:01] LABS: Basophils # (auto) 0.02 K/uL (0-0.2); Basophils % (auto) 0.2 %; Eosinophils # (auto) 0.24 K/uL (0-0.5); Hematocrit (blood only) 33.6 % (37-47); Hemoglobin 11.3 g/dL (12.0-16.0); Immature Granulocytes # (auto) 0.05 K/uL (0.00-0.02); Immature Granulocytes % (auto) 0.4 %; Lymphocytes # (auto) 3.92 K/uL (1.2-3.4); Lymphocytes % (auto) 32.3 %; Mean Corpuscular Hemoglobin 29.5 pg (25-34); Mean Corpuscular Hgb Conc 33.6 g/dL (32-36); Mean Corpuscular Volume 87.7 fL (80-100); Mean Platelet Volume 9.2 fL (7.4-10.4); Monocytes # (auto) 0.72 K/uL (0.11-0.59); Monocytes % (auto) 5.9 %; Neutrophils # (auto) 7.17 K/uL (1.4-6.5); Neutrophils % (auto) 59.2 %; Platelet Count 319 K/uL (130-400); RDW Coefficient of Variation 15.5 % (11.5-14.5); RDW Standard Deviation 49.9 fL (36.4-46.3); Red Blood Count 3.83 M/uL (4.2-5.4); White Blood Count 12.12 K/uL (4.8-10.8)
--- NOTE | 2020-09-06 08:15 | Obstetrical Progress Note ---
Date of Service September 06, 2020 Assessment & Plan Admission and Anticipated Discharge Date Admission Date: September 03, 2020 Subjective Patient is seen and examined. She feels well, no complaints other than NUNEZ, waiting for blood patch Ambulating without dizziness Voiding without difficulty Tolerating regular diet with out N&V Bleeding is minimal No change in vision/ fever/ chills/ CP/ SOB/ N&V/ Leg pain Breast feeding without problems Vital Signs Temp Pulse Pulse Resp BP BP Pulse Ox 09/06/20 03:10 37.1 C 79 18 130/84 99 09/05/20 23:25 37.1 C 78 18 131/84 99 09/05/20 20:43 36.7 C 95 H 16 127/85 99 09/05/20 20:33 36.5 C 100 H 18 134/87 96 09/05/20 16:05 37.5 C 86 18 132/85 09/05/20 12:30 37.3 C 87 18 137/86 Intake and Output 09/05/20 09/06/20 09/06/20 22:59 06:59 14:59 Intake Total Balance Intake: Intake (Blood Product) Amt Rho D Immune Globulin Unit [id number] Lab Results 09/03/20 09/03/20 09/03/20 Range/Units 08:20 08:20 09:16 WBC (4.8-10.8) K/uL RBC (4.2-5.4) M/uL Hgb (12.0-16.0) g/dL Hct (37-47) % MCV (80-100) fL MCH (25-34) pg MCHC (32-36) g/dL RDW Std Deviation (36.4-46.3) fL RDW Coeff of Bailey (11.5-14.5) % Plt Count (130-400) K/uL MPV (7.4-10.4) fL Immature Gran % (Auto) % Neut % (Auto) % Lymph % (Auto) % Victoria % (Auto) % Eos % (Auto) % Baso % (Auto) % Neut # (Auto) (1.4-6.5) K/uL Lymph # (Auto) (1.2-3.4) K/uL Victoria # (Auto) (0.11-0.59) K/uL Eos # (Auto) (0-0.5) K/uL Baso # (Auto) (0-0.2) K/uL Immature Gran # (Auto) (0.00-0.02) K/uL Sodium (136-145) mmol/L Potassium (3.5-5.1) mmol/L Chloride (98-107) mmol/L Carbon Dioxide (21-32) mmol/L Anion Gap (3-11) BUN (7-18) mg/dl Creatinine (0.6-1.2) mg/dl Est Cr Clr Drug Dosing ml/min Est GFR ( Amer) Est GFR (Non-Af Amer) BUN/Creatinine Ratio (10-20) Glucose (70-99) mg/dl Calcium (8.5-10.1) mg/dl Total Bilirubin (0.2-1) mg/dl AST (15-37) U/L ALT (12-78) U/L Alkaline Phosphatase (45-117) U/L Total Protein (6.4-8.2) gm/dl Albumin (3.4-5.0) gm/dl Globulin (2.5-4.0) gm/dl Albumin/Globulin Ratio (0.9-2) Urine Opiates Screen Neg (Neg) Ur Methadone, Qual Neg (Neg) Urine Barbiturates Neg (Neg) Ur Phencyclidine (PCP) Neg (Neg) U Amphetamin/Meth Scrn Neg (Neg) MDMA (Ecstasy) Screen Neg (Neg) U Benzodiazepines Scrn Neg (Neg) Ur Cocaine Metabolite Neg (Neg) U Marijuana (THC) Screen Pos H (Neg) U Marijuana THC Carboxy 47 H (<5) ng/mL Drug Screen Comment SEE NOTE Hepatitis C Antibody (Neg) Blood Type O Negative Antibody Screen NEGATIVE Screen (Negative) 09/03/20 09/03/20 09/03/20 Range/Units 09:16 09:16 09:16 WBC 10.60 (4.8-10.8) K/uL RBC 4.21 (4.2-5.4) M/uL Hgb 12.3 (12.0-16.0) g/dL Hct 36.4 L (37-47) % MCV 86.5 (80-100) fL MCH 29.2 (25-34) pg MCHC 33.8 (32-36) g/dL RDW Std Deviation 47.4 H (36.4-46.3) fL RDW Coeff of Bailey 15.1 H (11.5-14.5) % Plt Count 312 (130-400) K/uL MPV 9.1 (7.4-10.4) fL Immature Gran % (Auto) % Neut % (Auto) % Lymph % (Auto) % Victoria % (Auto) % Eos % (Auto) % Baso % (Auto) % Neut # (Auto) (1.4-6.5) K/uL Lymph # (Auto) (1.2-3.4) K/uL Victoria # (Auto) (0.11-0.59) K/uL Eos # (Auto) (0-0.5) K/uL Baso # (Auto) (0-0.2) K/uL Immature Gran # (Auto) (0.00-0.02) K/uL Sodium 137 (136-145) mmol/L Potassium 3.8 (3.5-5.1) mmol/L Chloride 111 H (98-107) mmol/L Carbon Dioxide 21 (21-32) mmol/L Anion Gap 5.0 (3-11) BUN 8 (7-18) mg/dl Creatinine 0.54 L (0.6-1.2) mg/dl Est Cr Clr Drug Dosing 228.5 ml/min Est GFR ( Amer) > 150.0 Est GFR (Non-Af Amer) 135.8 BUN/Creatinine Ratio 14.3 (10-20) Glucose 84 (70-99) mg/dl Calcium 8.4 L (8.5-10.1) mg/dl Total Bilirubin 0.2 (0.2-1) mg/dl AST 11 L (15-37) U/L ALT 13 (12-78) U/L Alkaline Phosphatase 153 H (45-117) U/L Total Protein 6.4 (6.4-8.2) gm/dl Albumin 2.6 L (3.4-5.0) gm/dl Globulin 3.8 (2.5-4.0) gm/dl Albumin/Globulin Ratio 0.7 L (0.9-2) Urine Opiates Screen (Neg) Ur Methadone, Qual (Neg) Urine Barbiturates (Neg) Ur Phencyclidine (PCP) (Neg) U Amphetamin/Meth Scrn (Neg) MDMA (Ecstasy) Screen (Neg) U Benzodiazepines Scrn (Neg) Ur Cocaine Metabolite (Neg) U Marijuana (THC) Screen (Neg) U Marijuana THC Carboxy (<5) ng/mL Drug Screen Comment Hepatitis C Antibody Neg (Neg) Blood Type Antibody Screen Screen (Negative) 09/05/20 09/05/20 09/06/20 Range/Units 06:33 13:32 06:33 WBC 16.72 H (4.8-10.8) K/uL RBC 3.79 L (4.2-5.4) M/uL Hgb 11.2 L 10.6 L (12.0-16.0) g/dL Hct 32.8 L 32.1 L (37-47) % MCV 86.5 (80-100) fL MCH 29.6 (25-34) pg MCHC 34.1 (32-36) g/dL RDW Std Deviation 48.1 H (36.4-46.3) fL RDW Coeff of Bailey 15.2 H (11.5-14.5) % Plt Count 296 (130-400) K/uL MPV 9.0 (7.4-10.4) fL Immature Gran % (Auto) % Neut % (Auto) % Lymph % (Auto) % Victoria % (Auto) % Eos % (Auto) % Baso % (Auto) % Neut # (Auto) (1.4-6.5) K/uL Lymph # (Auto) (1.2-3.4) K/uL Victoria # (Auto) (0.11-0.59) K/uL Eos # (Auto) (0-0.5) K/uL Baso # (Auto) (0-0.2) K/uL Immature Gran # (Auto) (0.00-0.02) K/uL Sodium (136-145) mmol/L Potassium (3.5-5.1) mmol/L Chloride (98-107) mmol/L Carbon Dioxide (21-32) mmol/L Anion Gap (3-11) BUN (7-18) mg/dl Creatinine (0.6-1.2) mg/dl Est Cr Clr Drug Dosing ml/min Est GFR ( Amer) Est GFR (Non-Af Amer) BUN/Creatinine Ratio (10-20) Glucose (70-99) mg/dl Calcium (8.5-10.1) mg/dl Total Bilirubin (0.2-1) mg/dl AST (15-37) U/L ALT (12-78) U/L Alkaline Phosphatase (45-117) U/L Total Protein (6.4-8.2) gm/dl Albumin (3.4-5.0) gm/dl Globulin (2.5-4.0) gm/dl Albumin/Globulin Ratio (0.9-2) Urine Opiates Screen (Neg) Ur Methadone, Qual (Neg) Urine Barbiturates (Neg) Ur Phencyclidine (PCP) (Neg) U Amphetamin/Meth Scrn (Neg) MDMA (Ecstasy) Screen (Neg) U Benzodiazepines Scrn (Neg) Ur Cocaine Metabolite (Neg) U Marijuana (THC) Screen (Neg) U Marijuana THC Carboxy (<5) ng/mL Drug Screen Comment Hepatitis C Antibody (Neg) Blood Type O Negative Antibody Screen Cancelled Screen Negative (Negative) 09/06/20 Range/Units 07:41 WBC 12.12 H (4.8-10.8) K/uL RBC 3.83 L (4.2-5.4) M/uL Hgb 11.3 L (12.0-16.0) g/dL Hct 33.6 L (37-47) % MCV 87.7 (80-100) fL MCH 29.5 (25-34) pg MCHC 33.6 (32-36) g/dL RDW Std Deviation 49.9 H (36.4-46.3) fL RDW Coeff of Bailey 15.5 H (11.5-14.5) % Plt Count 319 (130-400) K/uL MPV 9.2 (7.4-10.4) fL Immature Gran % (Auto) 0.4 % Neut % (Auto) 59.2 % Lymph % (Auto) 32.3 % Victoria % (Auto) 5.9 % Eos % (Auto) 2.0 % Baso % (Auto) 0.2 % Neut # (Auto) 7.17 H (1.4-6.5) K/uL Lymph # (Auto) 3.92 H (1.2-3.4) K/uL Victoria # (Auto) 0.72 H (0.11-0.59) K/uL Eos # (Auto) 0.24 (0-0.5) K/uL Baso # (Auto) 0.02 (0-0.2) K/uL Immature Gran # (Auto) 0.05 H (0.00-0.02) K/uL Sodium (136-145) mmol/L Potassium (3.5-5.1) mmol/L Chloride (98-107) mmol/L Carbon Dioxide (21-32) mmol/L Anion Gap (3-11) BUN (7-18) mg/dl Creatinine (0.6-1.2) mg/dl Est Cr Clr Drug Dosing ml/min Est GFR ( Amer) Est GFR (Non-Af Amer) BUN/Creatinine Ratio (10-20) Glucose (70-99) mg/dl Calcium (8.5-10.1) mg/dl Total Bilirubin (0.2-1) mg/dl AST (15-37) U/L ALT (12-78) U/L Alkaline Phosphatase (45-117) U/L Total Protein (6.4-8.2) gm/dl Albumin (3.4-5.0) gm/dl Globulin (2.5-4.0) gm/dl Albumin/Globulin Ratio (0.9-2) Urine Opiates Screen (Neg) Ur Methadone, Qual (Neg) Urine Barbiturates (Neg) Ur Phencyclidine (PCP) (Neg) U Amphetamin/Meth Scrn (Neg) MDMA (Ecstasy) Screen (Neg) U Benzodiazepines Scrn (Neg) Ur Cocaine Metabolite (Neg) U Marijuana (THC) Screen (Neg) U Marijuana THC Carboxy (<5) ng/mL Drug Screen Comment Hepatitis C Antibody (Neg) Blood Type Antibody Screen Screen (Negative) PE: General: Alert, orientedx3, NAD Abd: soft, NT, fundus firm, below Umbilicus Perineum intact, Lochia rubra minimal Ext; NT, no edema, Homans neg/ neg AP: 20 yo s/p , ppd# 2 VSS Afebrile doing well Waiting for epidural blood patch Continue routine care All questions were answered Discussed when to call D/C home , f/u in offfice Results & Data ([facility]) Vital Signs (Past 12 Hours) Vital Signs Temp Pulse Pulse Resp BP BP Pulse Ox 09/06/20 03:10 37.1 C 79 18 130/84 99 09/05/20 23:25 37.1 C 78 18 131/84 99 09/05/20 20:43 36.7 C 95 H 16 127/85 99 09/05/20 20:33 36.5 C 100 H 18 134/87 96
[2020-09-06] MEDS ORDERED: oxyCODONE/ACETAMINOPHEN 5mg/325mg TAB PO PRN (08:17)
[2020-09-06] MEDS ORDERED: BUTALBITAL/ACETAMIN/CAFFEINE TAB PO PRN (08:54)
--- NOTE | 2020-09-06 09:03 | Anesthesiology Progress Note ---
Date of Service September 06, 2020 Assessment & Plan (1) Headache: Patient with s/s of postdural puncture headache. I spoke briefly to patient this morning and upon arrival to room she was sitting upright in bed but stated her head felt like it was in a vice. She endorsed a frontal headache that radiated to her neck. Patient stated headache improves when she remains supine. Patient is aware she is going for a blood patch today at 1430. I had nurse ensure patient not have anything to eat for lunch on the off chance she requires sedation for this procedure. IV to remain in place and plan is for discharge after blood patch (patient aware she needs to remain supine for 1 hour after procedure). I ensured patient continues to drink caffeinated beverages and given that she was very uncomfortable now I wrote for a fioricet order. Patient had all questions answered and is awaiting her procedure later today. Present on Admission?: No Admission and Anticipated Discharge Date Admission Date: September 03, 2020 Physical Exam Vital Signs: Last Vital Signs Temp 37.1 C 09/06/20 03:10 Pulse 79 09/06/20 03:10 Resp 18 09/06/20 03:10 BP 130/84 09/06/20 03:10 Pulse Ox 99 09/06/20 03:10 Results & Data ([facility]) Medications Administered Acetaminophen (Acetaminophen 325 Mg Tab) 650 mg PO Q6H PRN PRN Reason: Pain/NUNEZ/Fever Stop: 10/04/20 17:59 Last Admin: 09/05/20 20:22 Dose: 650 mg Documented by: [id number] Admin: 09/05/20 05:47 Dose: 650 mg Documented by: [id number] Admin: 09/04/20 21:42 Dose: 650 mg Documented by: [id number] Benzocaine (Benzocaine 20% Aer Spr 82.5 Gm Can) 1 appln EXT PRN PRN PRN Reason: Perineal Discomfort Stop: 10/04/20 17:59 Last Admin: 09/04/20 20:41 Dose: 1 appln Documented by: [id number] Docusate Sodium (Docusate Sodium 100 Mg Cap) 100 mg PO DAILY@08, DAVE Stop: 10/04/20 20:59 Last Admin: 09/06/20 07:34 Dose: 100 mg Documented by: [id number] Admin: 09/05/20 20:21 Dose: 100 mg Documented by: [id number] Admin: 09/05/20 08:17 Dose: 100 mg Documented by: [id number] Admin: 09/04/20 22:26 Dose: Not Given Documented by: [id number] Ibuprofen (Ibuprofen 600 Mg Tab) 600 mg PO Q4H PRN PRN Reason: Pain/NUNEZ/Cramping/Fever Stop: 10/04/20 17:59 Last Admin: 09/06/20 07:33 Dose: 600 mg Documented by: [id number] Admin: 09/06/20 03:12 Dose: 600 mg Documented by: [id number] Admin: 09/05/20 21:44 Dose: 600 mg Documented by: [id number] Admin: 09/05/20 16:38 Dose: 600 mg Documented by: [id number] Admin: 09/05/20 12:22 Dose: 600 mg Documented by: [id number] Admin: 09/05/20 08:17 Dose: 600 mg Documented by: [id number] Admin: 09/05/20 03:23 Dose: 600 mg Documented by: [id number] Admin: 09/04/20 19:13 Dose: 600 mg Documented by: [id number] Prenat Multivit/[place]/Iron/Folic Ac ( Vitamin 1 Tab) 1 tab PO DAILY@08 DAVE Stop: 10/05/20 07:59 Last Admin: 09/06/20 07:34 Dose: 1 tab Documented by: [id number] Admin: 09/05/20 08:17 Dose: 1 tab Documented by: [id number] (1) Headache Headache chronicity pattern: acute headache Intractability: intractable Headache type: post-traumatic Qualified Code(s): G44.311 - Acute post-traumatic headache, intractable
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
[2020-09-06] MEDS: ACETAMINOPHEN 325 MG TAB PO PRN (15:14)
--- NOTE | 2020-09-06 15:58 | Obstetrical Progress Note ---
Date of Service September 06, 2020 Assessment & Plan Admission and Anticipated Discharge Date Admission Date: September 03, 2020 Subjective Patient is back She feels much better No more NUNEZ She awaiting till 5 pm to be discharged by anesthesia Discussed when to call All questions were answered Results & Data ([facility]) Vital Signs (Past 12 Hours) Vital Signs Temp Pulse Resp BP Pulse Ox 09/06/20 15:48 36.5 C 82 18 131/83 98 09/06/20 07:30 36.5 C 82 18 131/83 98
== END 2020-09-06 17:10 | disposition home or self-care (01) | DRG 806 ==
LOC: 4S1 08:06 → 4S2 09-04 20:54